=== PATIENT | male | born 1970 | race Caucasian/White ===

== ENCOUNTER 2023-05-04 23:12 | Emergency (ER) | payer OTHER, SELFPAY ==
--- NOTE | ~2023-05-04 | XR_ITS ---
EXAMINATION: XR knee LT min 4V DATE: 05/04/2023 23:28 INDICATION: Left knee injury. TECHNIQUE: 4 views of left knee were obtained. COMPARISON: None. FINDINGS: Bone alignment is normal. There is a subchondral fracture of lateral femoral condyle with 1 mm depression. There is mild osteoarthritis of lateral and patellofemoral compartments. There is a l arge knee joint effusion. IMPRESSION: 1. Subchondral fracture of lateral femoral condyle. 2. Mild left knee osteoarthritis. 3. Large knee joint effusion. Reviewed, dictated and finalized at location E.
[2023-05-04 23:12] VITALS: BP 126/81; PULSE 96; RESP 18; TEMP 36.7; O2SAT 96
--- NOTE | 2023-05-04 23:14 | ED.LOWEXIN ---
HPI - Extremity Injury (Lower) General Chief Complaint: Extremity Injury, Lower Stated Complaint: L Knee Injury Time Seen by Provider: 05/04/23 23:13 Source: patient Mode of arrival: ambulatory Limitations: no limitations History of Present Illness HPI Narrative: patient is a 53-year-old male with a left knee injury this evening. He was walking and stepped in a hole and twisted the left lower extremity and heard a pop sound in the left knee. MD complaint: knee injury Onset (ago): hour(s) (1) Injury: Left: knee Type of Injury: other ( Twist of the knee) Place: home Severity: moderate Severity scale (1-10): 5 Relieving factors: immobilization Exacerbating factors: weight bearing, movement and palpation Context: walking Associated symptoms: snap/pop sensation Other symptoms: none Treatments prior to arrival: NSAIDS Related Data Home Medications Medication Instructions Recorded Confirmed albuterol sulfate 90 mcg/actuation 2 puff inhalation Q4-5H PRN 05/04/23 05/04/23 aerosol inhaler Shortness Of Breath Or Wheezing Allergies Allergy/AdvReac Type Severity Reaction Status Date / Time haloperidol [From Haldol] Allergy Unknown Verified 05/04/23 23:28 Exam Const: General: healthy appearing Nutritional Appearance: well nourished Orientation/consciousness: patient oriented x3 HENMT: Head: normal to inspection Ears: external ears normal Face/Nose/Sinus: Normal external nose present Eyes: Conjunctivae: conjunctivae normal Pupils: Equal, round and reactive pupils present EOM: EOMs intact bilaterally Neck: Neck: normal visual inspection Chest: Chest palpation & inspection: normal inspection of the chest Resp: Effort & Inspection: normal respiratory effort and not labored Auscultation: clear to auscultation bilaterally Cardio: Rate: regular rate Rhythm: regular rhythm Heart sounds: no murmurs GI: Inspection: non-distended GI Palp: Yes Soft to palpation Auscultation: bowels sounds not normal : General: Yes bladder normal to palpation Back/Spine/Pelvis: Back: no CVA tenderness Skin: General skin exam: normal color Rashes: no rashes Wounds: no wounds Neuro: General: patient oriented x3 Cranial nerves: Yes Nystagmus not present Speech: normal speech Extrem: General: abnormal to inspection Other: Tender left knee to palpation and lateral pain of the knee on manipulation with maneuvers; moderate localized effusion Psych: Mental Status: mental status grossly normal Affect: normal affect Attitude: cooperative Course Vital Signs Vital signs: Vital Signs Temperature 36.7 C 05/04/23 23:12 Pulse Rate 96 05/04/23 23:12 Respiratory Rate 18 05/04/23 23:12 Blood Pressure 126/81 05/04/23 23:12 Pulse Oximetry 96 05/04/23 23:12 Oxygen Delivery Room Air 05/04/23 23:12 Temperature 36.7 C 05/04/23 23:12 Pulse Rate 96 05/04/23 23:12 Respiratory Rate 18 05/04/23 23:12 Blood Pressure 126/81 05/04/23 23:12 Pulse Oximetry 96 05/04/23 23:12 Oxygen Delivery Room Air 05/04/23 23:12 MDM - Extremity Injury (Lower) MDM Narrative Medical decision making narrative: patient is a 53-year-old male with a left knee injury this evening. We will do an x-ray at this time. preliminary reading by me shows no acute process of the x-ray. Patient will need outpatient MRI. We will put a Leo bandage on the left knee. We will give him a shot of Toradol and send some pain medicine to the pharmacy. Imaging Data Attestation: I personally reviewed and interpreted this imaging study as follows: Radiologist's impression: Preliminary reading by me of the left knee x-ray shows no acute process Discharge Plan Discharge Clinical Impression: Derangement of knee Patient Disposition: Home, Self-Care Condition: Stable Instructions: Knee Pain (ED) Additional Instructions: please follow-up with the primary doctor in the next week. You will need an MRI of the left kne
--- NOTE | 2023-05-04 23:42 | PC.NURSE ---
Elastic bandage applied to left knee. Distal CMS intact. Pt verbalized understanding of use and application.
[2023-05-04] MEDS: KETOROLAC (*BKC) 60 MG/2 ML VIAL IM (23:46)
--- NOTE | 2023-05-05 09:32 | PC.NURSE ---
05/05/23 0920 pt returned per doctors request for placement of left knee immobilizer pt geoff well pt given ortho list to follow up with doctor and primary doctors list dara bryant rn
== END 2023-05-04 23:58 | disposition home or self-care (01) ==
LOC: CHSED 23:41
PROVIDERS: Emergency Provider Emergency Medicine
DX: M23.92 Unspecified internal derangement of left knee (principal); X50.1XXA Overexertion from prolonged static or awkward postures, initial encounter
CPT/HCPCS: 73564; 96372; 99283; J1885; L1830

== ENCOUNTER 2023-05-16 14:54 | Outpatient (CLI) | payer OTHER, SELFPAY ==
--- NOTE | ~2023-05-16 | MR_ITS ---
MRI of the left femur CLINICAL HISTORY: Quadriceps tear, stress fracture, AVN TECHNIQUE: T1-weighted and STIR images were acquired in the axial, coronal, and sagittal planes. FINDINGS: Bone marrow signals are unremarkable. No fracture, avascular necrosis, or osteomyelitis. Karina int spaces at the hip and knee are grossly intact. Minimal knee joint effusion present. No periosteal reaction. There is mild edematous change along the distal aspect of the vastus lateralis muscle belly. Remainin g musculature is unremarkable. Visualized tendons are intact. Subcutaneous soft tissues are unremarka ble. No soft tissue mass or fluid collection evident. IMPRESSION: Findings consistent with low-grade muscle strain of the distal vastus lateralis muscle belly. Minimal knee joint effusion. Reviewed, dictated and finalized at location .
== END 2023-05-16 14:55 | disposition home or self-care (01) ==
PROVIDERS: PCP Nurse Practitioner Family; Visit Provider Orthopaedic Surgery
DX: M84.452A Pathological fracture, left femur, initial encounter for fracture (principal); S76.112A Strain of left quadriceps muscle, fascia and tendon, initial encounter; M87.059 Idiopathic aseptic necrosis of unspecified femur
CPT/HCPCS: 73721